=== PATIENT | female | born 1990 | race Caucasian/White ===

== ENCOUNTER 2017-05-07 17:01 | Emergency (ER) | payer MEDICAID, OTHER ==
[~2017-05-07] VITALS: Ht 162.6 cm; Wt 108.9 kg
[~2017-05-07 17:01] MED LIST: ALPR0.5T20; ATI.5 PO
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
--- NOTE | 2017-05-07 17:38 | NUR ---
Patient discharged with v/s stable. Written and verbal after care instructions given and explained. Patient alert, oriented and verbalized understanding of instructions. Ambulatory with steady gait. All questions addressed prior to discharge. ID band removed. Patient advised to follow up with PMD. Rx of Naproxen, Prednisone, and Robaxin given. Patient educated on indication of medication including possible reaction and side effects. Opportunity to ask questions provided and answered.
[2017-05-07 17:39] VITALS: BP 137/80
== END 2017-05-07 17:38 | disposition home or self-care (01) ==
LOC: MED 17:01
DX: J06.9 Acute upper respiratory infection, unspecified (principal); M54.6 Pain in thoracic spine
CPT/HCPCS: 99283; J7030

== ENCOUNTER 2018-08-13 01:09 | Emergency (ER) | payer MEDICAID ==
[~2018-08-13] VITALS: Ht 162.6 cm; Wt 101.2 kg
[2018-08-13 01:10] VITALS: BP 123/84
--- NOTE | 2018-08-13 01:40 | NUR ---
PT TAKEN TO BED 3.
--- NOTE | 2018-08-13 01:45 | NUR ---
PT BIB SELF C/O SHORTNESS OF BREATH. PT STATES SHE HAS TIME THROUGH OUT THE DAY WERE SHE HAS TO CATCH HER BREATH AND FEEL OUT OF BREATH, STATES HE HAPPENS MOSTLY AT NIGHT AND WAKES HER UP OUT OF HER SLEEP, PT STATES SHE WILL WAKE UP HYPERVENTILATING. DENIES RECENT ILLNESS, FEVER, CHILLS, COUGH, N/V, OR PAIN AT THIS TIME. PT BREATHING EQUAL AND UNLABORED AT THIS TIME; LUNG SOUND CLEAR THOUGH OUT. PT STATES SHE HAS HAD SYMPTOMS LIKE THIS BEFORE WHEN SHE HAD ANXIETY. PT IS ; + CARE, DENIES VAGINAL BLEEDING, DISCHARGE OR CRAMPING. PT ACTING APPROPRIATLY, SPEAKING IN CLEAR AND COMPLETE SENTENCES. PENDING ERMD EVAL. WILL CONTINUE MONITOR. PMH: DENIES
[2018-08-13] MEDS ORDERED: ALBUTEROL 0.083% 2.5 MG/3 ML NEBU INH ONE (02:40)
--- NOTE | 2018-08-13 02:41 | NUR ---
X-RAY AT BEDSIDE.
--- NOTE | 2018-08-13 02:42 | NUR ---
RT AT BEDSIDE.
--- NOTE | 2018-08-13 03:25 | NUR ---
Patient discharged with v/s stable. Patient states she has some relief after breathing tx, and is ready to go home. Patient denies pain at this time. Written and verbal after care instructions given and explained. Patient alert, oriented and verbalized understanding of instructions. Ambulatory with steady gait. All questions addressed prior to discharge. ID band removed. Patient advised to follow up with PMD. Rx of Albuterol given. Patient educated on indication of medication including possible reaction and side effects. Opportunity to ask questions provided and answered.
[2018-08-13 03:26] VITALS: BP 120/78
== END 2018-08-13 03:25 | disposition home or self-care (01) ==
LOC: MED 01:09
DX: F41.9 Anxiety disorder, unspecified (principal); R06.00 Dyspnea, unspecified; Z79.899 Other long term (current) drug therapy
CPT/HCPCS: 94640; 99283; J7613